=== PATIENT | female | born 1950 | race Caucasian/White ===

== ENCOUNTER → 2017-08-07 | Outpatient (CLI) | payer MEDICARE, MEDICAID ==
[~2017-08-07] MED LIST: 00186-0370-20 IH; ALBUTEROL0.83 MG/ML IH; AMOXICILLIN 50500 MG PO; AMOXICILLIN 8751 TAB PO; ASPIRIN E.C. 8181 MG PO; ATENOLOL50 MG PO; CYMBALTA 60MG60 MG PO; DARVOCET N 101 UDTAB PO; DESYREL 50MG50 MG PO; DOXYCYCLINE 10100 MG PO; FERROUS SULFAT324 MG PO; FLECTOR1.3% TP; FLEXERIL 1010 MG/TAB PO; KETOROLAC10 MG PO; LEXAPRO 10MG10 MG PO; LEXAPRO20 MG PO; LORTAB 5/500 501 TAB PO; MEDROL 4MG DOSPA4 MG PO; NAPROSYN500 MG PO; NORCO 325 MG-51 TAB PO; NORCO 325 MG-7.1 TAB PO; NORVASC 10MG10 MG PO; PHENERGAN 25 TA25 MG PO; PREDNISONE 5MG5 MG PO; PREMARIN 0.9MG0.9 MG PO; PREVACID 30MG30 M1 PO; PREVACID30 M1 PO; PROVENTIL0.09 MG/A1 IH; REMICADE V100 MG/VIA IV; ROXICODONE 55 MG/TAB PO; RT SPIRIVA18 MCG IH; TENORMIN 2525 MG/TAB PO; TOPROL XL100 MG PO; TYLENOL 325MG325 MG PO; ULTRAM 50MG TAB50 MG PO; ULTRAM50 MG PO; VENTOLIN0.09 MG IH; XANAX .25M0.25 MG/TA PO; ZOFRAN 4MG T4 MG/TAB PO
== END ==
LOC: COL.RAD 11:13
DX: Z86.79 Personal history of other diseases of the circulatory system (principal)
CPT/HCPCS: Q9967

== ENCOUNTER → 2018-08-09 | Outpatient (CLI) | payer MEDICARE, MEDICAID | LOC: MC.RAD 13:15 | DX: Z12.31 Encounter for screening mammogram for malignant neoplasm of breast (principal) ==

== ENCOUNTER 2022-03-02 17:18 | Emergency (ER) | payer MEDICARE, MEDICAID ==
[~2022-03-02] VITALS: Ht 154.9 cm; Wt 62.3 kg
[2022-03-02 17:22] VITALS: TEMP 99.2
[2022-03-02 18:34] LABS: BASO % 0.8 % (0.0-2.0); EOS # 0.2 K/mm3 (0.0-0.7); EOS % 4.8 % (0.0-4.0); GRAN % 60.6 % (42.2-75.2); HEMATOCRIT 38.2 % (37.0-47.0); HEMOGLOBIN 13.3 g/dl (12.5-16.0); LYMPH # 1.2 K/mm3 (1.2-3.4); LYMPH % 23.4 % (20.0-51.0); MEAN CELL VOLUME 97 fl (80.0-100.0); MEAN CORPUSCULAR HEMOGLOBIN 34 pg (27-31); MEAN CORPUSCULAR HGB CONC 35 g/dl (33.0-37.0); MEAN PLATELET VOLUME 9.5 fl (7.4-10.4); MONO # 0.5 K/mm3 (0.1-0.6); MONO % 10.2 % (1.7-9.3); PLATELET COUNT 283 K/mm3 (130-400); RED BLOOD COUNT 3.95 M/mm3 (4.10-5.30); REDCELL DISTRIBUTION WIDTH-CV 12.6 % (11.5-14.5)
[2022-03-02 18:50] LABS: ALANINE AMINOTRANSFERASE 10 U/L (0-55); ALBUMIN 3.8 gm/dL (3.4-4.8); ALKALINE PHOSPHATASE 56 U/L (40-150); ANION GAP 9 mmol/L (7-16); AST,SGOT 16 U/L (5-34); BILIRUBIN,TOTAL 0.6 mg/dL (0.2-1.2); BLOOD UREA NITROGEN 10 mg/dL (10-20); CALCIUM 9.2 mg/dL (8.4-10.2); CARBON DIOXIDE 26 mmol/L (23-31); CHLORIDE 105 mmol/L (98-107); CREATININE, serum 0.71 mg/dL (0.57-1.11); GLUCOSE 99 mg/dL (70-99); LIPASE 38 U/L (8-78); POTASSIUM 4.4 mmol/L (3.5-4.5); SODIUM 140 mmol/L (136-145); TOTAL PROTEIN 8.2 gm/dL (6.2-8.1)
[2022-03-02 18:57] LABS: TROPONIN-I < 0.010 ng/mL (0.00-0.033)
[2022-03-02 19:06] LABS: COLLECTION METHOD CLEAN CATCH
[2022-03-02 19:17] LABS: PH 6.5 (5.0-8.5); URINE APPEARANCE Clear (CLEAR/HAZY); URINE BLOOD Negative (NEGATIVE); URINE COLOR Yellow (YELLOW); URINE GLUCOSE Negative (NEGATIVE); URINE KETONE Negative (NEGATIVE); URINE NITRATE Negative (NEGATIVE); URINE PROTEIN(semi-quant) 1+ (NEGATIVE); URINE UROBILINOGEN 0.2 E.U/dL (0.2-1.0)
[2022-03-02 19:22] LABS: SQUAMOUS EPITHELIAL None Seen /hpf (0-10); URINE BACTERIA None Seen /hpf (NONE SEEN); URINE RBC None Seen /hpf (0-2)
[2022-03-02] MEDS ORDERED: PRINIVIL10 MG PO (19:29)
[2022-03-02 20:05] VITALS: BP 146/88; PULSE 76
== END 2022-03-02 20:05 | disposition home or self-care (01) ==
LOC: COL.ER 17:18
PROVIDERS: Nurse Practitioner Primary Care
DX: I10 Essential (primary) hypertension (principal)